=== PATIENT | male | born 1955 | race Hispanic/Latino ===

== ENCOUNTER 2025-03-26 14:41 | Outpatient (CLI) | payer MEDICARE | END 2025-03-26 14:42 | disposition home or self-care (01) | LOC: CT 14:41 | PROVIDERS: ATTEND Family Medicine | DX: Z12.2 Encounter for screening for malignant neoplasm of respiratory organs (principal); Z87.891 Personal history of nicotine dependence | CPT/HCPCS: 71271 ==